=== PATIENT | male | born 1945 | race Caucasian/White ===

== ENCOUNTER → 2018-03-19 | Outpatient (CLI) | payer MEDICARE, OTHER ==
[2018-03-19 10:38] LABS: Basophils # (A) 0.1 k/uL (0-0.2); Basophils % (A) 1 %; Eosinophils # (A) 0.1 k/uL (0-0.7); Eosinophils % (A) 2 %; HCT 46.6 % (39.0-53.0); Lymphocytes # (A) 1.4 k/uL (1.0-4.8); Lymphocytes % (A) 19 %; MCH 28.8 pg (25.0-35.0); MCHC 32.1 g/dL (31.0-37.0); MCV 89.6 fL (80.0-100.0); Mean Platelet Volume 6.7; Monocytes # (A) 0.6 k/uL (0-1.0); Monocytes % (A) 9 %; Neutrophils # (A) 4.7 k/uL (1.3-7.7); Neutrophils % (A) 67 %; Platelet Count 251 k/uL (150-450); RBC 5.21 m/uL (4.30-5.90); RDW 15.2 % (11.5-15.5); WBC 7.1 k/uL (3.8-10.6)
== END | disposition home or self-care (01) ==
LOC: LABPAT 09:49
PROVIDERS: ATTEND Surgery
DX: Z01.812 Encounter for preprocedural laboratory examination (principal); K43.2 Incisional hernia without obstruction or gangrene; D64.9 Anemia, unspecified; F17.200 Nicotine dependence, unspecified, uncomplicated
CPT/HCPCS: 36415; 85025; 86850; 86900; 86901

== ENCOUNTER 2018-03-21 10:55 | Day surgery (SDC) | payer MEDICARE, OTHER ==
[2018-03-16 11:33] VITALS: BMI 23.5
[~2018-03-21 10:55] MED LIST: HEPARIN SODIUM,PORCINE 5,000 UNIT/ML 1 ML VIAL SQ ONE; ceFAZolin IN SWFI 2 GM/20 ML SYRINGE IVP ONE
[2018-03-21] MEDS ORDERED: LACTATED RINGERS 1,000 ML IV SCH (11:05)
[2018-03-21] MEDS ORDERED: MORPHINE SULFATE 2 MG/ML SYRINGE IV PRN (11:05)
[2018-03-21] MEDS ORDERED: DEXAMETHASONE SOD PHOSPHATE 10 MG/ML 1 ML VIAL IV ONE (11:05)
[2018-03-21] MEDS ORDERED: ONDANSETRON 4 MG/2 ML VIAL IVP ONE ×2 (11:05→14:06)
--- NOTE | 2018-03-21 11:41 | P.GSHP ---
History of Present Illness H&P Date: 03/21/18 Chief Complaint: Incisional hernia 's is a 72-year-old male referred from Dr. Leslie. Patient's complaints of epigastric pain. He was seen [facility] found have to reducible incisional hernias located in the epigastric and left upper quadrant area. Past Medical History Past Medical History: Cancer, COPD, CVA/TIA, GERD/Reflux, Hyperlipidemia, Hypertension, Myocardial Infarction ([place]), Prostate Disorder, Thyroid Disorder Additional Past Medical History / Comment(s): 2 incisional hernias, hx thyroid cancer, rt leg feels heavy after CVA- occ uses cane, Last Myocardial Infarction Date:: 06-25-2010 History of Any Multi-Drug Resistant Organisms: None Reported Past Surgical History: Bowel Resection, Coronary Bypass/CABG, Heart Catheterization With Stent Additional Past Surgical History / Comment(s): Mitral Valve Repair, CABG X4, STENT X1, thyroidectomy, right carotid endarterectomy, OBDULIA CATARACTS Past Anesthesia/Blood Transfusion Reactions: Postoperative Nausea & Vomiting ( PONV) Date of Last Stent Placement:: 04/25/2013 Smoking Status: Current every day smoker - Past Family History Sister(s) Family Medical History: Cancer Father Family Medical History: No Reported History Medications and Allergies Home Medications Medication Instructions Recorded Confirmed Type Aspirin 81 mg PO DAILY 06/01/15 03/21/18 History Ipratropium/Albuterol Sulfate 2 puff INHALATION QID PRN 06/01/15 03/21/18 History [Combivent Respimat Inhaler] Levothyroxine Sodium [Synthroid] 112 mcg PO DAILY 06/01/15 03/21/18 History Lisinopril [Zestril] 10 mg PO BID 06/01/15 03/21/18 History Tamsulosin HCl [Flomax] 0.4 mg PO HS 06/01/15 03/21/18 History Tiotropium 18 Mcg/Puff [Spiriva] 1 cap INHALATION HS PRN 06/01/15 03/21/18 History Warfarin [Coumadin] 2.5 mg PO HS 06/01/15 03/21/18 History Pravastatin Sodium [Pravachol] 40 mg PO HS 05/04/16 03/21/18 History Albuterol Sulfate [Proair Hfa] 1 - 2 puff INHALATION Q4H PRN #1 09/10/16 Rx inhaler Azithromycin [Zithromax Z-pack] 0 mg PO DIRECTED #1 pack 09/10/16 03/21/18 Rx predniSONE 50 mg PO DAILY #5 tab 09/10/16 03/21/18 Rx Allergies Allergy/AdvReac Type Severity Reaction Status Date / Time atorvastatin calcium Allergy Nausea Verified 03/21/18 11:12 [From Lipitor] hydromorphone HCl Allergy Unknown Verified 03/21/18 11:12 [From Dilaudid] levofloxacin [From Levaquin] Allergy Unknown Verified 03/21/18 11:12 Surgical - Exam Vital Signs Temp Pulse Resp BP Pulse Ox 98.2 F 83 16 146/90 97 03/21/18 11:26 03/21/18 11:26 03/21/18 11:26 03/21/18 11:26 03/21/18 11:26 - General well developed, no distress - Eyes PERRL - ENT normal pinna - Neck no masses - Respiratory normal expansion - Cardiovascular Rhythm: regular - Abdomen Abdomen: soft, non tender Hernia: incisional (3 cm epigastric incisional hernia. 2 cm left upper quadrant incisional hernia) Assessment and Plan Plan: Incisional hernias 2. We'll perform laparoscopic robotic-assisted repair.
[2018-03-21 11:54] LABS: Partial Thromboplastin Time 25.5 sec (22.0-30.0); Prothrombin Time 10.1 sec (9.0-12.0)
[2018-03-21] MEDS ORDERED: GLYCOPYRROLATE 0.2 MG/ML 2 ML VIAL ONE (12:13)
[2018-03-21] MEDS ORDERED: PROPOFOL 10 MG/ML 20 ML VIAL IV ONE (12:13)
[2018-03-21] MEDS ORDERED: NEOSTIGMINE 1 MG/ML 10 ML VIAL ONE (12:13)
[2018-03-21] MEDS ORDERED: LABETALOL 5 MG/ML VIAL MDV ONE (12:13)
[2018-03-21] MEDS ORDERED: LIDOCAINE 1% INJ 10MG/ML (20 ML MDV) ONE (12:13)
[2018-03-21] MEDS ORDERED: SUCCINYLCHOLINE CHLORIDE 100 MG/5 ML SYR IV ONE (12:13)
[2018-03-21] MEDS ORDERED: MIDAZOLAM 2 MG/2 ML VIAL ONE (12:13)
[2018-03-21] MEDS ORDERED: ROCURONIUM BROMIDE 10 MG/ML 10 ML VIAL IV ONE (12:13)
[2018-03-21] MEDS ORDERED: ePHEDrine SULFATE/0.9% NACL/PF 50 MG/5 ML SYRINGE IV ONE (12:13)
[2018-03-21] MEDS ORDERED: HYDROmorphone (PF) 1 MG/ML ONE (12:13)
[2018-03-21] MEDS ORDERED: fentaNYL (PF) 50 MCG/ML 2 ML AMP ONE (12:13)
[2018-03-21] MEDS ORDERED: BUPIVACAIN-EPI 0.25%-1:200,000 30 ML VIAL SQ ONE (12:23)
[2018-03-21 13:53] VITALS: TEMP 97.8
[2018-03-21] MEDS ORDERED: MORPHINE SULFATE 4 MG/ML SYRINGE IVP ONE (14:06)
[2018-03-21] MEDS ORDERED: MORPHINE SULFATE 4MG/4ML SYRG IVP ONE (14:17)
[2018-03-21] MEDS ORDERED: HYDROcodone/APAP 7.5-325MG 1 EACH TAB PO ONE (15:10)
--- NOTE | 2018-03-21 15:20 | P.OP ---
Date of Procedure: 03/21/18 Preoperative Diagnosis: Incisional hernia Postoperative Diagnosis: Incisional hernia Procedure(s) Performed: Laparoscopic robotic repair of incisional hernia Anesthesia: GUS Surgeon: Mitch Miller Pathology: none sent Condition: stable Disposition: PACU Description of Procedure: The patient was placed on the operating table in the supine position. He received general anesthesia. His abdomen was prepped and draped usual fashion. Using a 5 mm optical trocar under direct visualization the peritoneal cavity was entered in the right lower quadrant. The abdomen was then insufflated. The laparoscope was placed back into the perineal cavity. Next a 8 mm robotic trocar was placed in the left lower quadrant and a 8 mm robotic trochars placed in the right subcostal position. position. The patient's placed in the left side up position. And the patient was docked to the robot. The incisional hernia was visualized. Using hook cautery the peritoneum over the incisional hernia was excised. The fascial opening was repaired using 0V LOC suture. Next a piece of 11 cm round ventral light ST mesh was placed into the. Cavity and secured with 2 OV lock suture. The patient was undocked the robot. The needles were retrieved. The fascia of the 12 mm trocar site was closed with 0 Ethibond suture. Skin was closed interrupted 3-0 Monocryl suture. Dermabond dressings was applied. Patient tolerated procedure well and was sent to recovery room stable condition.
[2018-03-21 15:47] VITALS: BP 118/63; PULSE 71; RESP 18
== END 2018-03-21 16:13 | disposition home or self-care (01) ==
LOC: OR 10:55
PROVIDERS: ATTEND Surgery
DX: K43.2 Incisional hernia without obstruction or gangrene (principal); J44.9 Chronic obstructive pulmonary disease, unspecified; K21.9 Gastro-esophageal reflux disease without esophagitis; E78.5 Hyperlipidemia, unspecified; I10 Essential (primary) hypertension; N42.9 Disorder of prostate, unspecified; E89.0 Postprocedural hypothyroidism; I25.10 Atherosclerotic heart disease of native coronary artery without angina pectoris; I25.2 Old myocardial infarction; I69.341 Monoplegia of lower limb following cerebral infarction affecting right dominant side; F17.200 Nicotine dependence, unspecified, uncomplicated; Z95.2 Presence of prosthetic heart valve; Z95.1 Presence of aortocoronary bypass graft; Z95.5 Presence of coronary angioplasty implant and graft; Z85.850 Personal history of malignant neoplasm of thyroid; Z79.890 Hormone replacement therapy; Z79.82 Long term (current) use of aspirin; Z79.52 Long term (current) use of systemic steroids; Z79.899 Other long term (current) drug therapy; Z79.01 Long term (current) use of anticoagulants; Z88.1 Allergy status to other antibiotic agents; Z88.5 Allergy status to narcotic agent; Z88.8 Allergy status to other drugs, medicaments and biological substances
CPT/HCPCS: 85610; 85730; 49654; C1781; J2270 ×2; J1644; J1100; J2405; J0690; 86850; 86900; 86901

== ENCOUNTER 2018-07-21 13:59 | Emergency (ER) | payer MEDICARE, OTHER ==
[2018-07-21] MEDS ORDERED: SODIUM CHLORIDE 0.9% 1,000 ML IV STA ×2 (14:35)
[2018-07-21] MEDS ORDERED: ONDANSETRON 4 MG/2 ML VIAL IVP STA (14:35)
[2018-07-21] MEDS ORDERED: MECLIZINE 12.5 MG TAB PO STA ×2 (14:36→16:43)
--- NOTE | 2018-07-21 15:13 | ED ---
Dizziness HPI - General Chief Complaint: Dizziness Stated Complaint: Dizziness Time Seen by Provider: 07/21/18 14:22 Source: patient, RN notes reviewed, old records reviewed Mode of arrival: wheelchair Limitations: no limitations - History of Present Illness Initial Comments: This Patient is a 72-year-old male presents emergency Department with tingling of dizziness. Patient reports that when he woke up from his nap this morning he started to have dizziness with moving his head. He's had a history of vertigo in the past. His medications were they did not take them. He denied any chest pain shortness of breath or headaches associated with this. He does have a past medical history significant for cardiac disease, open-heart surgery 2 years ago, and previous history of strokes. Patient states that at this time he did have some episodes of vomiting prior to arrival. He threw up at home and once while getting into the car. He is here with his daughter today. Patient reports he does take Coumadin. - Related Data Home Medications Medication Instructions Recorded Confirmed Aspirin 81 mg PO DAILY 06/01/15 03/21/18 Ipratropium/Albuterol Sulfate 2 puff INHALATION QID PRN 06/01/15 03/21/18 [Combivent Respimat Inhaler] Levothyroxine Sodium [Synthroid] 112 mcg PO DAILY 06/01/15 03/21/18 Lisinopril [Zestril] 10 mg PO BID 06/01/15 03/21/18 Tamsulosin HCl [Flomax] 0.4 mg PO HS 06/01/15 03/21/18 Tiotropium 18 Mcg/Puff [Spiriva] 1 cap INHALATION HS PRN 06/01/15 03/21/18 Warfarin [Coumadin] 2.5 mg PO HS 06/01/15 03/21/18 Pravastatin Sodium [Pravachol] 40 mg PO HS 05/04/16 03/21/18 Previous Rx's Medication Instructions Recorded Albuterol Sulfate [Proair Hfa] 1 - 2 puff INHALATION Q4H PRN #1 09/10/16 inhaler Azithromycin [Zithromax Z-pack] 0 mg PO DIRECTED #1 pack 09/10/16 predniSONE 50 mg PO DAILY #5 tab 09/10/16 Docusate [Colace] 100 mg PO BID #20 capsule 03/21/18 HYDROcodone/APAP 7.5-325MG [[place] 1 tab PO Q4H PRN 3 Days #18 tab 03/21/18 7.5-325] Meclizine [Antivert] 25 mg PO TID #15 tab 07/21/18 Ondansetron Odt [Zofran Odt] 4 mg PO Q12HR PRN #10 tab 07/21/18 Allergies Allergy/AdvReac Type Severity Reaction Status Date / Time atorvastatin calcium Allergy Nausea Verified 07/21/18 14:02 [From Lipitor] hydromorphone HCl Allergy Unknown Verified 07/21/18 14:02 [From Dilaudid] levofloxacin [From Levaquin] Allergy Unknown Verified 07/21/18 14:02 Review of Systems ROS Statement: Those systems with pertinent positive or pertinent negative responses have been documented in the HPI. ROS Other: All systems not noted in ROS Statement are negative. Past Medical History Past Medical History: Cancer, COPD, CVA/TIA, GERD/Reflux, Hyperlipidemia, Hypertension, Myocardial Infarction ([place]), Prostate Disorder, Thyroid Disorder Additional Past Medical History / Comment(s): 2 incisional hernias, hx thyroid cancer, rt leg feels heavy after CVA- occ uses cane, Last Myocardial Infarction Date:: 06-25-2010 History of Any Multi-Drug Resistant Organisms: None Reported Past Surgical History: Bowel Resection, Coronary Bypass/CABG, Heart Catheterization With Stent, Hernia Repair Additional Past Surgical History / Comment(s): Mitral Valve Repair, CABG X4, STENT X1, thyroidectomy, right carotid endarterectomy, OBDULIA CATARACTS Past Anesthesia/Blood Transfusion Reactions: Postoperative Nausea & Vomiting ( PONV) Date of Last Stent Placement:: 04/25/2013 Past Psychological History: No Psychological Hx Reported Smoking Status: Current every day smoker Past Alcohol Use History: None Reported Past Drug Use History: None Reported - Past Family History Sister(s) Family Medical History: Cancer Father Family Medical History: No Reported History General Exam - General Exam Comments Initial Comments: 72-year-old male. Alert and oriented. Patient appears in no acute distress. Limitations: no limitations General appearance: alert, in no apparent distress Head exam: Present: atraumatic, normocephalic, normal inspection Eye exam: Present: normal appearance, PERRL, EOMI. Absent: scleral icterus, conjunctival injection, periorbital swelling ENT exam: Present: normal exam, normal oropharynx, mucous membranes moist Neck exam: Present: normal inspection. Absent: tenderness, meningismus, lymphadenopathy Respiratory exam: Present: normal lung sounds bilaterally. Absent: respiratory distress, wheezes, rales, rhonchi, stridor Cardiovascular Exam: Present: regular rate, normal rhythm, normal heart sounds. Absent: systolic murmur, diastolic murmur, rubs, gallop, clicks GI/Abdominal exam: Present: soft, normal bowel sounds. Absent: distended, tenderness, guarding, rebound, rigid Extremities exam: Present: normal inspection, full ROM, normal capillary refill. Absent: tenderness, pedal edema, joint swelling, calf tenderness Back exam: Present: normal inspection Neurological exam: Present: alert, oriented X3, CN II-XII intact, abnormal gait ( has chronic left-sided weakness posterior a stroke. Family reports this is chronic. No acute changes.) Expanded Patient oriented to: Present: person, place, time Speech: Present: fluid speech Cranial nerves: EOM's Intact: Normal, Nystagmus: Normal, Facial Sensation: Normal Cerebellar function: Finger to Nose: Normal Upper motor neuron: Pronator Drift: Normal Sensory exam: Upper Extremity Light Touch: Normal, Lower Extremity Light Touch: Normal Motor strength exam: RUE: 5, LUE: 5, RLE: 5, LLE: 4 (Patient did have decreased motor strength within the left lower extremity straight leg raise. Family reports this is chronic.) Eye Response: (4) open spontaneously Motor Response: (6) obeys commands Verbal Response: (5) oriented [place] Total: 15 Psychiatric exam: Present: normal affect, normal mood Skin exam: Present: warm, dry, intact, normal color. Absent: rash Course Vital Signs 07/21/18 07/21/18 07/21/18 14:02 14:14 14:30 Temperature 97.5 F L Pulse Rate 81 74 Respiratory 18 12 Rate Blood Pressure 144/94 156/98 156/98 O2 Sat by Pulse 98 96 97 Oximetry 07/21/18 07/21/18 07/21/18 15:00 15:30 16:00 Temperature Pulse Rate 76 79 Respiratory 18 14 Rate Blood Pressure 153/95 158/95 157/96 O2 Sat by Pulse 97 94 L Oximetry 07/21/18 07/21/18 16:30 17:40 Temperature 97.6 F Pulse Rate 81 78 Respiratory 18 16 Rate Blood Pressure 127/89 150/94 O2 Sat by Pulse 95 97 Oximetry - Reevaluation(s) Reevaluation #1: 07/21/18 17:28 At this time I did ambulate the Patient on the hallway and he feels much better. No signs of unsteady gait there than his baseline. Patient states he' s been much better and complains of no dizziness. Medical Decision Making - Medical Decision Making Patient is a 72-year-old male presents return with a chief complaint of dizziness episode. He reports it seems similar to vertigo, where the room was spinning and he did feel nauseated and vomited 3 times. At this time patient's labwork and EKG reviewed and show no acute changes. He does have history of stroke. We did complete a CT which shows evidence of old lacunar infarcts but no acute changes. Patient had no focal or lateralizing neurological deficits. He denied any chest pain or shortness of breath. Patient did feel better after receiving the Antivert. He was given a road test and had no difficulty with ambulation. Patient chest x-ray was also showing no acute changes. At this time Patient is to go home. He does not feel nauseated and reports that his vertigo has resolved after the Antivert from a second dose. Patient will be discharged with Antivert and Zofran. Discussed close follow up with primary care physician. - Lab Data Result diagrams: 07/21/18 15:01 07/21/18 15:01 Lab Results 07/21/18 07/21/18 07/21/18 Range/Units 15:01 15:01 15:01 WBC 10.8 H (3.8-10.6) k/uL RBC 5.41 (4.30-5.90) m/uL Hgb 15.3 (13.0-17.5) gm/dL Hct 47.6 (39.0-53.0) % MCV 88.0 (80.0-100.0) fL MCH 28.4 (25.0-35.0) pg MCHC 32.2 (31.0-37.0) g/dL RDW 14.5 (11.5-15.5) % Plt Count 323 (150-450) k/uL Neutrophils % 77 % Lymphocytes % 11 % Monocytes % 7 % Eosinophils % 2 % Basophils % 0 % Neutrophils # 8.4 H (1.3-7.7) k/uL Lymphocytes # 1.2 (1.0-4.8) k/uL Monocytes # 0.7 (0-1.0) k/uL Eosinophils # 0.3 (0-0.7) k/uL Basophils # 0.0 (0-0.2) k/uL PT (9.0-12.0) sec INR (<1.2) APTT (22.0-30.0) sec Sodium 140 (137-145) mmol/L Potassium 4.3 (3.5-5.1) mmol/L Chloride 107 (98-107) mmol/L Carbon Dioxide 28 (22-30) mmol/L Anion Gap 5 mmol/L BUN 22 H (9-20) mg/dL Creatinine 0.82 (0.66-1.25) mg/dL Est GFR (CKD-EPI)AfAm >90 (>60 ml/min/1.73 sqM) Est GFR (CKD-EPI)NonAf 90 (>60 ml/min/1.73 sqM) Glucose 95 (74-99) mg/dL Calcium 9.4 (8.4-10.2) mg/dL Total Bilirubin 0.5 (0.2-1.3) mg/dL AST 17 (17-59) U/L ALT 21 (21-72) U/L Alkaline Phosphatase 89 (38-126) U/L Total Creatine Kinase 70 (55-170) U/L CK-MB (CK-2) 1.0 (0.0-2.4) ng/mL CK-MB (CK-2) Rel Index 1.4 Troponin I <0.012 (0.000-0.034) ng/mL Total Protein 7.1 (6.3-8.2) g/dL Albumin 4.1 (3.5-5.0) g/dL 07/21/18 Range/Units 15:01 WBC (3.8-10.6) k/uL RBC (4.30-5.90) m/uL Hgb (13.0-17.5) gm/dL Hct (39.0-53.0) % MCV (80.0-100.0) fL MCH (25.0-35.0) pg MCHC (31.0-37.0) g/dL RDW (11.5-15.5) % Plt Count (150-450) k/uL Neutrophils % % Lymphocytes % % Monocytes % % Eosinophils % % Basophils % % Neutrophils # (1.3-7.7) k/uL Lymphocytes # (1.0-4.8) k/uL Monocytes # (0-1.0) k/uL Eosinophils # (0-0.7) k/uL Basophils # (0-0.2) k/uL PT 16.7 H (9.0-12.0) sec INR 1.8 H (<1.2) APTT 30.8 H (22.0-30.0) sec Sodium (137-145) mmol/L Potassium (3.5-5.1) mmol/L Chloride (98-107) mmol/L Carbon Dioxide (22-30) mmol/L Anion Gap mmol/L BUN (9-20) mg/dL Creatinine (0.66-1.25) mg/dL Est GFR (CKD-EPI)AfAm (>60 ml/min/1.73 sqM) Est GFR (CKD-EPI)NonAf (>60 ml/min/1.73 sqM) Glucose (74-99) mg/dL Calcium (8.4-10.2) mg/dL Total Bilirubin (0.2-1.3) mg/dL AST (17-59) U/L ALT (21-72) U/L Alkaline Phosphatase (38-126) U/L Total Creatine Kinase (55-170) U/L CK-MB (CK-2) (0.0-2.4) ng/mL CK-MB (CK-2) Rel Index Troponin I (0.000-0.034) ng/mL Total Protein (6.3-8.2) g/dL Albumin (3.5-5.0) g/dL 07/21/18 18:54 EKG performed at 1422 shows a sinus of left atrial ALLERGIC report on EKG noted. Ventricular rate 73 bpm. Was 188. QRS duration 112. QTQTC's for 424-467. - Radiology Data Radiology results: report reviewed Chronic small vessel ischemia. Multiple lacunar infarcts. No acute intracranial abnormality. No significant changes noted. Chest x-ray shows no active cardio primary disease. Normal heart. No change. Disposition Clinical Impression: Vertigo Disposition: HOME SELF-CARE Condition: Good Instructions: Vertigo (ED) Additional Instructions: Patient advised follow-up with primary care provider. Return to the emergency department if any alarming signs or symptoms occur. Prescriptions: Meclizine [Antivert] 25 mg PO TID #15 tab Ondansetron Odt [Zofran Odt] 4 mg PO Q12HR PRN #10 tab PRN Reason: Nausea Is patient prescribed a controlled substance at d/c from ED?: No Referrals: Sonny Leslie MD [Primary Care Provider] - 1-2 days Time of Disposition: 17:27
[2018-07-21 15:17] LABS: Basophils % (A) 0 %; Eosinophils # (A) 0.3 k/uL (0-0.7); Eosinophils % (A) 2 %; HCT 47.6 % (39.0-53.0); HGB 15.3 gm/dL (13.0-17.5); Lymphocytes # (A) 1.2 k/uL (1.0-4.8); Lymphocytes % (A) 11 %; MCH 28.4 pg (25.0-35.0); MCHC 32.2 g/dL (31.0-37.0); Mean Platelet Volume 6.6; Monocytes # (A) 0.7 k/uL (0-1.0); Monocytes % (A) 7 %; Neutrophils # (A) 8.4 k/uL (1.3-7.7); Neutrophils % (A) 77 %; Platelet Count 323 k/uL (150-450); RBC 5.41 m/uL (4.30-5.90); RDW 14.5 % (11.5-15.5); WBC 10.8 k/uL (3.8-10.6)
[2018-07-21 15:26] LABS: ALT 21 U/L (21-72); AST 17 U/L (17-59); Albumin 4.1 g/dL (3.5-5.0); Alkaline Phosphatase 89 U/L (38-126); Anion Gap 5 mmol/L; Blood Urea Nitrogen 22 mg/dL (9-20); Calcium 9.4 mg/dL (8.4-10.2); Carbon Dioxide 28 mmol/L (22-30); Chloride 107 mmol/L (98-107); Glucose 95 mg/dL (74-99); INR 1.8 (<1.2); Partial Thromboplastin Time 30.8 sec (22.0-30.0); Potassium 4.3 mmol/L (3.5-5.1); Prothrombin Time 16.7 sec (9.0-12.0); Sodium 140 mmol/L (137-145); Total Bilirubin 0.5 mg/dL (0.2-1.3); Total Protein 7.1 g/dL (6.3-8.2)
[2018-07-21 15:36] LABS: Creatine Kinase 70 U/L (55-170)
--- NOTE | 2018-07-21 15:38 | XR ---
EXAMINATION TYPE: XR chest 2V DATE OF EXAM: 07/21/2018 COMPARISON: 09/09/2016 HISTORY: Dizziness TECHNIQUE: Frontal and lateral views of the chest are obtained. FINDINGS: Heart is normal. Lungs are clear of consolidation. Thoracic aorta is atheromatous. There a re sternal wires. There are chest leads. Bony thorax is intact. IMPRESSION: No active cardiopulmonary disease. Normal heart. No change.
[2018-07-21 15:49] LABS: Troponin I <0.012 ng/mL (0.000-0.034)
--- NOTE | 2018-07-21 15:55 | CT ---
EXAMINATION TYPE: CT brain wo con DATE OF EXAM: 07/21/2018 COMPARISON: 02/05/2016 HISTORY: Dizziness. CT DLP: 1076.4 mGycm Automated exposure control for dose reduction was used. FINDINGS: There is patchy hypodensity in the periventricular white matter. There is no mass effect nor midline shift. There is no sign of intracranial hemorrhage. There is cerebral cortical atrophy. Calvarium is intact. There is a 7 mm lacunar infarct right internal capsule. IMPRESSION: CHRONIC SMALL VESSEL ISCHEMIA. MULTIPLE LACUNAR INFARCTS. NO ACUTE INTRACRANIAL ABNORMALITY. NO SHANKS E.
[2018-07-21] MEDS ORDERED: ONDANSETRON 4 MG ODT STARTER PACK 2 TAB BTL PO STA (17:27)
[2018-07-21 17:41] VITALS: BP 150/94; PULSE 78; RESP 16; TEMP 97.6
== END 2018-07-21 17:40 | disposition home or self-care (01) ==
LOC: EC 13:59
DX: R42 Dizziness and giddiness (principal); I67.82 Cerebral ischemia; I69.354 Hemiplegia and hemiparesis following cerebral infarction affecting left non-dominant side; R11.2 Nausea with vomiting, unspecified; E78.5 Hyperlipidemia, unspecified; I10 Essential (primary) hypertension; J44.9 Chronic obstructive pulmonary disease, unspecified; N42.9 Disorder of prostate, unspecified; I25.2 Old myocardial infarction; E89.0 Postprocedural hypothyroidism; F17.200 Nicotine dependence, unspecified, uncomplicated; Z88.1 Allergy status to other antibiotic agents; Z88.5 Allergy status to narcotic agent; Z88.8 Allergy status to other drugs, medicaments and biological substances; Z79.01 Long term (current) use of anticoagulants; Z79.82 Long term (current) use of aspirin; Z79.899 Other long term (current) drug therapy; Z85.850 Personal history of malignant neoplasm of thyroid; Z95.1 Presence of aortocoronary bypass graft; Z98.890 Other specified postprocedural states
CPT/HCPCS: 36415; 93005; 80053; 82550; 82553; 84484; 85025; 85610; 85730; 71046; 70450; 99285; 96374; 96361 ×3; J2405

== ENCOUNTER 2019-07-28 08:14 | Emergency (ER) | payer MEDICARE, OTHER ==
[2019-07-28] MEDS ORDERED: TOBRAMYCIN 0.3% OPHTH DROPS 5 ML BTL RIGHT EYE STA (08:20)
[2019-07-28] MEDS ORDERED: PROPARACAINE 0.5% OPHTH DROPS 15 ML BTL RIGHT EYE STA (08:20)
[2019-07-28] MEDS ORDERED: DIPH,PERTUS(ACELL)TETVAC-LF 0.5 ML VIAL IM ONE (08:38)
--- NOTE | 2019-07-28 08:40 | ED ---
Eye Problem HPI - General Chief complaint: Eye Problems Stated complaint: Eye injury Time Seen by Provider: 07/28/19 08:19 Source: patient, RN notes reviewed Mode of arrival: ambulatory Limitations: no limitations - History of Present Illness Initial comments: 73-year-old male presented from chief complaint right eye injury. Patient states he woke up around 9 scratches on it. Patient states he is unsure when his last tetanus was. Patient states that he has light sensitivity and pain to his right eye but no blurred vision he states it is tearing some. He does wear glasses does see Dr. Kaminski. - Related Data Home Medications Medication Instructions Recorded Confirmed Aspirin 81 mg PO DAILY 06/01/15 03/21/18 Ipratropium/Albuterol Sulfate 2 puff INHALATION QID PRN 06/01/15 03/21/18 [Combivent Respimat Inhaler] Levothyroxine Sodium [Synthroid] 112 mcg PO DAILY 06/01/15 03/21/18 Lisinopril [Zestril] 10 mg PO BID 06/01/15 03/21/18 Tamsulosin HCl [Flomax] 0.4 mg PO HS 06/01/15 03/21/18 Tiotropium 18 Mcg/Puff [Spiriva] 1 cap INHALATION HS PRN 06/01/15 03/21/18 Warfarin [Coumadin] 2.5 mg PO HS 06/01/15 03/21/18 Pravastatin Sodium [Pravachol] 40 mg PO HS 05/04/16 03/21/18 Previous Rx's Medication Instructions Recorded Albuterol Sulfate [Proair Hfa] 1 - 2 puff INHALATION Q4H PRN #1 09/10/16 inhaler Azithromycin [Zithromax Z-pack] 0 mg PO DIRECTED #1 pack 09/10/16 predniSONE 50 mg PO DAILY #5 tab 09/10/16 Docusate [Colace] 100 mg PO BID #20 capsule 03/21/18 HYDROcodone/APAP 7.5-325MG [[place] 1 tab PO Q4H PRN 3 Days #18 tab 03/21/18 7.5-325] Meclizine [Antivert] 25 mg PO TID #15 tab 07/21/18 Ondansetron Odt [Zofran Odt] 4 mg PO Q12HR PRN #10 tab 07/21/18 Allergies Allergy/AdvReac Type Severity Reaction Status Date / Time atorvastatin calcium Allergy Nausea Verified 07/28/19 08:18 [From Lipitor] hydromorphone HCl Allergy Unknown Verified 07/28/19 08:18 [From Dilaudid] levofloxacin [From Levaquin] Allergy Unknown Verified 07/28/19 08:18 Review of Systems ROS Statement: Those systems with pertinent positive or pertinent negative responses have been documented in the HPI. ROS Other: All systems not noted in ROS Statement are negative. Past Medical History Past Medical History: Cancer, COPD, CVA/TIA, GERD/Reflux, Hyperlipidemia, Hypertension, Myocardial Infarction ([place]), Prostate Disorder, Thyroid Disorder Additional Past Medical History / Comment(s): 2 incisional hernias, hx thyroid cancer, rt leg feels heavy after CVA- occ uses cane, Last Myocardial Infarction Date:: 06-25-2010 History of Any Multi-Drug Resistant Organisms: None Reported Past Surgical History: Bowel Resection, Coronary Bypass/CABG, Heart Catheterization With Stent, Hernia Repair Additional Past Surgical History / Comment(s): Mitral Valve Repair, CABG X4, STENT X1, thyroidectomy, right carotid endarterectomy, OBDULIA CATARACTS Past Anesthesia/Blood Transfusion Reactions: Postoperative Nausea & Vomiting (PONV) Date of Last Stent Placement:: 04/25/2013 Past Psychological History: No Psychological Hx Reported Smoking Status: Current every day smoker Past Alcohol Use History: None Reported Past Drug Use History: None Reported - Past Family History Sister(s) Family Medical History: Cancer Father Family Medical History: No Reported History General Exam Limitations: no limitations General appearance: alert, in no apparent distress Head exam: Present: atraumatic, normocephalic, normal inspection Eye exam: Present: PERRL, EOMI, conjunctival injection (Mild right), other (2 drops of proparacaine and recent right eye all pain was relieved. Patient had fluorescein dye and Wood's lamp which shows a large uptake, 12:00 to 4 o'clock position there is no disruption of the globe.). Absent: normal appearance, scleral icterus, periorbital swelling Course Vital Signs 07/28/19 08:14 Temperature 98.4 F Pulse Rate 77 Respiratory 18 Rate Blood Pressure 153/89 O2 Sat by Pulse 96 Oximetry Medical Decision Making - Medical Decision Making 73-year-old male presented for right eye pain. Patient has a corneal abrasion which is significantly large this was shown to daughter in the room. Patient instructed to use Tobrex eyedrops and recently seen by his boat fueler tomorrow. He is return for any change in symptoms. Patient's tetanus is updated Disposition Clinical Impression: Corneal abrasion, right Disposition: HOME SELF-CARE Condition: Stable Instructions (If sedation given, give patient instructions): Corneal Abrasion (ED) Additional Instructions: Use Tobrex eyedrops 1 drop every 4 hours for 5 days. please follow-up with your boat fueler tomorrow. Please return to the Emergency Department if symptoms worsen or any other concerns. Is patient prescribed a controlled substance at d/c from ED?: No Referrals: Sonny Leslie MD [Primary Care Provider] - 1-2 days Chin Kaminski DO [Doctor of Osteopathic Medicine] - 1-2 days Time of Disposition: 08:40
[2019-07-28 09:13] VITALS: BP 145/95; PULSE 80; RESP 20; TEMP 96.9
== END 2019-07-28 09:21 | disposition home or self-care (01) ==
LOC: EC 08:14
DX: S05.01XA Injury of conjunctiva and corneal abrasion without foreign body, right eye, initial encounter (principal); J44.9 Chronic obstructive pulmonary disease, unspecified; K21.9 Gastro-esophageal reflux disease without esophagitis; E78.5 Hyperlipidemia, unspecified; I10 Essential (primary) hypertension; I25.2 Old myocardial infarction; N42.9 Disorder of prostate, unspecified; E07.9 Disorder of thyroid, unspecified; F17.200 Nicotine dependence, unspecified, uncomplicated; Z23 Encounter for immunization; Z79.82 Long term (current) use of aspirin; Z79.01 Long term (current) use of anticoagulants; Z79.890 Hormone replacement therapy; Z79.51 Long term (current) use of inhaled steroids; Z79.899 Other long term (current) drug therapy; Z88.1 Allergy status to other antibiotic agents; Z88.5 Allergy status to narcotic agent; Z88.8 Allergy status to other drugs, medicaments and biological substances; Z95.1 Presence of aortocoronary bypass graft; Z85.850 Personal history of malignant neoplasm of thyroid; Z86.73 Personal history of transient ischemic attack (TIA), and cerebral infarction without residual deficits; Z95.5 Presence of coronary angioplasty implant and graft; Z90.89 Acquired absence of other organs; Z98.41 Cataract extraction status, right eye; Z98.42 Cataract extraction status, left eye; X58.XXXA Exposure to other specified factors, initial encounter; Y93.89 Activity, other specified
CPT/HCPCS: 90471; 90715; 99283

== ENCOUNTER 2020-04-16 06:18 | Day surgery (SDC) | payer MEDICARE, OTHER ==
[2020-04-15 09:41] VITALS: BMI 24.2
[~2020-04-16 06:18] MED LIST changes: +ALPRAZolam 0.25 MG TAB PO PRN; -HEPARIN SODIUM,PORCINE 5,000 UNIT/ML 1 ML VIAL SQ ONE; +SODIUM CHLORIDE 0.9% 1,000 ML in EMPTY BAG 1 BAG IV ONE; -ceFAZolin IN SWFI 2 GM/20 ML SYRINGE IVP ONE
[2020-04-16 06:57] VITALS: RESP 16; TEMP 97.8
[2020-04-16 06:59] LABS: Basophils # (A) 0.1 k/uL (0-0.2); Basophils % (A) 1 %; Eosinophils # (A) 0.4 k/uL (0-0.7); Eosinophils % (A) 4 %; Lymphocytes # (A) 2.1 k/uL (1.0-4.8); Lymphocytes % (A) 21 %; MCH 28.4 pg (25.0-35.0); MCHC 31.8 g/dL (31.0-37.0); MCV 89.1 fL (80.0-100.0); Mean Platelet Volume 7.4; Monocytes # (A) 1.2 k/uL (0-1.0); Monocytes % (A) 12 %; Neutrophils # (A) 5.9 k/uL (1.3-7.7); Neutrophils % (A) 59 %; Platelet Count 329 k/uL (150-450); RBC 5.28 m/uL (4.30-5.90); RDW 14.4 % (11.5-15.5); WBC 9.9 k/uL (3.8-10.6)
[2020-04-16] MEDS ORDERED: ASPIRIN 325 MG TAB PO ONE (07:00)
[2020-04-16 07:07] LABS: Potassium 4.2 mmol/L (3.5-5.1)
[2020-04-16 07:16] LABS: Prothrombin Time 10.5 sec (9.0-12.0)
[2020-04-16] MEDS ORDERED: MIDAZOLAM 2 MG/2 ML VIAL IV ONE (07:56)
[2020-04-16] MEDS ORDERED: LIDOCAINE 1% INJ 10MG/ML (20 ML MDV) SQ ONE (07:58)
[2020-04-16] MEDS ORDERED: IOPAMIDOL-250 100ML BTL INTRAARTER ONE (08:10)
[2020-04-16] MEDS ORDERED: SODIUM CHLORIDE 0.9% 1,000 ML IV SCH (08:30)
--- NOTE | 2020-04-16 08:35 | IR ---
EXAMINATION TYPE: IR angio abdominal w runoff DATE OF EXAM: 04/16/2020 COMPARISON: NONE HISTORY: Fluoroscopy time. Fluoroscopy was provided to the referring clinician.
--- NOTE | 2020-04-16 09:29 | CC ---
CARDIAC CATHETERIZATION REPORT DATE OF SERVICE: 04/16/2020 PERFORMING PHYSICIAN: Odell Love MD. PROCEDURE PERFORMED: 1. An abdominal aortogram. 2. Bilateral lower extremities runoff. INDICATION: This is a 74-year-old gentleman who sees Dr. Ivan in the office as an outpatient with multiple risk factors including significant history of smoking, was experiencing bilateral lower extremities intermittent claudication, worse on the right side than the left side. On vascular examination, he does have diminished pedal pulses with chronic skin changes, more prominent on the right than the left. He underwent an arterial duplex study which showed elevated peak systolic velocity over the right SFA. Because of that, he was referred for further evaluation. APPROACH: Right common femoral artery. COMPLICATION: None. LEVEL OF SEDATION: Moderate with sedation length of 15 minutes. PROCEDURE DESCRIPTION: After obtaining an informed consent, the patient was brought to the cardiac label stitcher. The right common femoral artery was cannulated using micropuncture technique, the micropuncture wire passed easily, then I placed a 5-Australian sheath 11 cm at the right groin than subsequently I did an abdominal aortogram and bilateral lower extremities runoff using 5-Australian pigtail catheter which was initially placed at the level of the renal arteries, then it was pulled into above the bifurcation of the aorta. That was performed using digital subtraction as well as with a power injection. SELECTIVE PERIPHERAL ANGIOGRAM: 1. The aorta is aneurysmal and the aneurysm is involving both common iliac arteries. 2. Common iliac arteries: The right and left common iliac arteries are aneurysmal. Beside that, the left common iliac artery appeared to have a tight lesion in the range of 70% to 80%. 3. Internal iliac arteries: Both internal iliac arteries are patent. 4. External iliac arteries: Both external iliac arteries appeared to have mild disease only. 5. Common femoral arteries: Both common femoral arteries are patent. 6. Profunda:: Both profunda are patent. 7. SFA; The right SFA appeared to have a tight lesion in the midportion. The lesion appeared to be in the range of 80% to 90%. The left SFA appeared to have mild disease only. 8. Popliteal: Both popliteal appear to be appeared to be aneurysmal. 9. Below the knee: The patient does have 2-vessel runoff below the knee on the right side with posterior tibial and peroneal and 2 on the left side with anterior tibial and peroneal impulse. POSTPROCEDURE MANAGEMENT: 1. Address the infrarenal abdominal aortic aneurysm. 2. Then COIL TIER of the SFA to follow. LIV / JIMMYN: [id number] /
[2020-04-16 11:42] VITALS: BP 145/76; PULSE 63
== END 2020-04-16 13:34 | disposition home or self-care (01) ==
LOC: CATHCVL 06:18
PROVIDERS: ATTEND Internal Medicine Interventional Cardiology
DX: I70.213 Atherosclerosis of native arteries of extremities with intermittent claudication, bilateral legs (principal); I72.3 Aneurysm of iliac artery; I71.4 Abdominal aortic aneurysm, without rupture; I10 Essential (primary) hypertension; I25.10 Atherosclerotic heart disease of native coronary artery without angina pectoris; E78.5 Hyperlipidemia, unspecified; F17.210 Nicotine dependence, cigarettes, uncomplicated; Z79.01 Long term (current) use of anticoagulants; Z79.82 Long term (current) use of aspirin; Z79.890 Hormone replacement therapy; Z79.899 Other long term (current) drug therapy
CPT/HCPCS: 36200; 75625; 75716; 80048; 85025; 85610; C1769 ×5; C1894; J2250; J2001; Q9966

== ENCOUNTER 2020-05-20 09:40 | Day surgery (SDC) | payer MEDICARE, OTHER ==
[2020-05-14 10:06] VITALS: BMI 23.5
[~2020-05-20 09:40] MED LIST changes: +ASPIRIN 325 MG TAB PO STA
[2020-05-20 10:43] LABS: Prothrombin Time 10.3 sec (9.0-12.0)
[2020-05-20] MEDS ORDERED: SODIUM CHLORIDE 0.9% 500 ML 500 ML with niCARdipine 6.25 MG, NITROGLYCERIN-D5W PMX 0.05... IV ONE ×4 (12:15)
[2020-05-20] MEDS ORDERED: MIDAZOLAM 2 MG/2 ML VIAL IV ONE (12:19)
[2020-05-20] MEDS ORDERED: LIDOCAINE 1% INJ 10MG/ML (20 ML MDV) SQ ONE (12:20)
[2020-05-20] MEDS ORDERED: NITROGLYCERIN 1000MCG/10ML SYRINGE INTRAARTER ONE (13:00)
[2020-05-20] MEDS ORDERED: niCARdipine 25 MG/10 ML VIAL INTRAARTER ONE (13:00)
[2020-05-20] MEDS ORDERED: IOPAMIDOL-250 100ML BTL INTRAARTER ONE (13:04)
[2020-05-20] MEDS ORDERED: CLOPIDOGREL 75 MG TAB PO ONE (13:08)
[2020-05-20] MEDS ORDERED: IPRATROPIUM-ALBUTEROL 3 ML NEB INHALATION PRN (13:24)
[2020-05-20] MEDS ORDERED: SODIUM CHLORIDE 0.9% 1,000 ML in EMPTY BAG 1 BAG IV SCH (13:30)
--- NOTE | 2020-05-20 13:31 | IR ---
EXAMINATION TYPE: IR stent intravascular non coronary DATE OF EXAM: 05/20/2020 COMPARISON: NONE HISTORY: Right leg pain TECHNIQUE: Fluoroscopy. FINDINGS: Fluoroscopic guidance was provided during procedure performed by Dr. Love. A total of 5.4 minutes of fluoroscopic time was utilized during the procedure and 236 spot images was acquired. Ple ase see operative report for additional details. IMPRESSION: As Above.
[2020-05-20] MEDS: IPRATROPIUM 0.5 MG/2.5 ML NEBU INHALATION SCH (20:41)
[2020-05-20] MEDS: lisinopriL 10 MG TAB PO SCH (20:41)
[2020-05-20] MEDS ORDERED: PRAVASTATIN SODIUM 80 MG TAB PO SCH (21:00)
[2020-05-20] MEDS ORDERED: TAMSULOSIN 0.4 MG CAP.ER.24H PO SCH (21:00)
--- NOTE | 2020-05-20 22:52 | LTR ---
To: Dr. Sonny Leslie Re: Ap Win (49) Dear Dr. Leslie, MrChe Win underwent successful balloon angioplasty of the right femoral artery with an excellent angiographic result and without any complication. Thank you for allowing us to participate in his care and please do not hesitate to call if you have any question or concern. Sincerely, Odell Love M.D. LIV / STEPHANIE: [id number] /
--- NOTE | 2020-05-21 00:28 | AN ---
ANGIOGRAPHY REPORT PERCUTANEOUS PERIPHERAL INTERVENTION DATE OF SERVICE: May 20, 2020 PERFORMING PHYSICIAN: Odell Love MD. PROCEDURE PERFORMED: 1. Atherectomy of the right SFA using the HawkOne device. 2. Intravascular ultrasound, IVUS, of the right SFA. 3. Successful balloon angioplasty of the right SFA using 5 mm x 40 mm InPact drug- coated balloon with an excellent angiographic result. 4. Right lower extremity angiogram. 5. Selective left common femoral artery angiogram. INDICATION: This is a 74-year-old gentleman who was experiencing bilateral lower extremities discomfort, worse on the right side seems to be concerning for intermittent claudication. He underwent an aortogram with runoff and that revealed intermediate to severe disease involving the left iliac artery with critical disease involving the right SFA. He was brought today to undergo an intervention on the right SFA. APPROACH: Left common femoral artery. COMPLICATION: None. LEVEL OF SEDATION: Moderate with sedation length of 40 minutes. PROCEDURE DESCRIPTION: After obtaining an informed consent, the patient was brought to the cardiac cleaner laboratory equipment. The left common femoral artery was cannulated using micropuncture technique, and a micropuncture wire passed easily then I placed a 6-English 70 cm sheath at the left common femoral artery. Subsequently, an 0.035 stiff Glidewire was advanced up and over using 5-English rim all the way to the right SFA. Subsequently, the sheath was advanced over the wire to the mid right SFA. At that point, anticoagulation was initiated using heparin. Right lower extremity angiogram was performed and revealed severe [id number]-[id number]-[id number] disease with critical disease involving the mid right SFA. I did cross the lesion in the right SFA using a 0.[address] wire. Subsequently I did intravascular ultrasound which gave me a diameter of 5.5 mm. Subsequently, atherectomy was performed using the HawkOne device with extraction of significant plaque. Then I did balloon angioplasty initially using 5 mm regular balloon and subsequently 5 mm drug-coated balloon. The following angiogram showed great angiographic results and the procedure was completed without any complication. A completion picture was performed and came in to be unremarkable. After that I did exchange my long sheath into short sheath using an 0.035 stiff Glidewire before I did selective left common femoral artery angiogram. The procedure was completed without any complication. POSTPROCEDURE MANAGEMENT: 1. Dual anti-platelet therapy. 2. Risk factor modifications. 3. Follow up with the patient. MMODL / IJN: [id number] /
[2020-05-21 05:43] LABS: African American GFR (CKD) >90 (>60 ml/min/1.73 sqM); Magnesium 1.8 mg/dL (1.6-2.3); Non-African American GFR(CKD) 90 (>60 ml/min/1.73 sqM); Potassium 3.8 mmol/L (3.5-5.1)
[2020-05-21] MEDS ORDERED: LEVOTHYROXINE 100 MCG TAB PO SCH (06:30)
--- NOTE | 2020-05-21 07:08 | DS ---
DISCHARGE SUMMARY ADMISSION DATE: May 20, 2020 DISCHARGE DATE: May 21, 2020 BRIEF HISTORY: This is a pleasant 74-year-old gentleman who was experiencing right lower extremity and left lower extremity intermittent claudication and underwent an angiogram which revealed critical disease involving the right SFA. He underwent yesterday successful atherectomy and angioplasty of the right SFA with good angiographic results. The patient is going to be discharged home on dual anti-platelet therapy. I am going to hold the Coumadin for the next couple of days until the groin heals better. I will follow up with the patient next week in the office. LIV / STEPHANIE: [id number] /
[2020-05-21] MEDS ORDERED: CLOPIDOGREL 75 MG TAB PO SCH (09:00)
[2020-05-21] MEDS ORDERED: amLODIPine 5 MG TAB PO SCH (09:00)
[2020-05-21] MEDS ORDERED: ASPIRIN 81 MG PO SCH (09:00)
[2020-05-21] MEDS: IPRATROPIUM 0.5 MG/2.5 ML NEBU INHALATION SCH (09:11)
[2020-05-21 09:31] VITALS: BP 145/85; PULSE 72; RESP 18; TEMP 97.8
[2020-05-21] MEDS: lisinopriL 10 MG TAB PO SCH (09:55)
[2020-05-21 11:48] LABS: Basophils # (A) 0.1 k/uL (0-0.2); Basophils % (A) 1 %; Eosinophils # (A) 0.4 k/uL (0-0.7); Eosinophils % (A) 4 %; HCT 44.2 % (39.0-53.0); HGB 13.9 gm/dL (13.0-17.5); Lymphocytes # (A) 1.3 k/uL (1.0-4.8); Lymphocytes % (A) 13 %; MCH 27.4 pg (25.0-35.0); MCHC 31.4 g/dL (31.0-37.0); MCV 87.3 fL (80.0-100.0); Mean Platelet Volume 8.6; Monocytes # (A) 1.2 k/uL (0-1.0); Monocytes % (A) 12 %; Neutrophils # (A) 6.7 k/uL (1.3-7.7); Neutrophils % (A) 68 %; Platelet Count 302 k/uL (150-450); RBC 5.06 m/uL (4.30-5.90); RDW 14.3 % (11.5-15.5); WBC 9.9 k/uL (3.8-10.6)
[2020-05-21 12:07] LABS: Anion Gap 7 mmol/L; Blood Urea Nitrogen 18 mg/dL (9-20); Calcium 8.6 mg/dL (8.4-10.2); Carbon Dioxide 21 mmol/L (22-30); Chloride 110 mmol/L (98-107); Glucose 90 mg/dL (74-99); Sodium 138 mmol/L (137-145)
== END 2020-05-21 10:00 | disposition home or self-care (01) ==
LOC: CATHCVL 09:40 → 3NCARDOBS 17:14 → CATHCVL 05-21 10:00
PROVIDERS: ATTEND Internal Medicine Interventional Cardiology
DX: I70.213 Atherosclerosis of native arteries of extremities with intermittent claudication, bilateral legs (principal); I10 Essential (primary) hypertension; I25.10 Atherosclerotic heart disease of native coronary artery without angina pectoris; I48.0 Paroxysmal atrial fibrillation; I71.4 Abdominal aortic aneurysm, without rupture; E78.5 Hyperlipidemia, unspecified; F17.210 Nicotine dependence, cigarettes, uncomplicated; Z95.1 Presence of aortocoronary bypass graft; Z79.01 Long term (current) use of anticoagulants; Z79.890 Hormone replacement therapy; Z79.899 Other long term (current) drug therapy; Z79.82 Long term (current) use of aspirin
CPT/HCPCS: 94640; 37225; 85347; 37252; 80048; 83735; 85025; 85610; C1894 ×3; C1769 ×5; C1714; C1753; C2623; C1725; J2250; J2001; J1644; Q9966

== ENCOUNTER → 2020-06-03 | Outpatient (CLI) | payer MEDICARE, OTHER ==
--- NOTE | 2020-06-03 08:18 | US ---
EXAMINATION TYPE: US venous doppler duplex LE RT DATE OF EXAM: 06/03/2020 7:21 AM COMPARISON: NONE CLINICAL HISTORY: 74-year-old male R22.41 Localized swelling, mass and lump, right lower extremity. S welling of right foot and ankle SIDE PERFORMED: Right TECHNIQUE: The lower extremity deep venous system is examined utilizing real time linear array sonog uknal with graded compression, doppler sonography and color-flow sonography. FINDINGS: VESSELS IMAGED: External Iliac Vein (EIV) Common Femoral Vein Deep Femoral Vein Greater Saphenous Vein * Femoral Vein Popliteal Vein Small Saphenous Vein * Proximal Calf Veins (* superficial vessels) Right Leg: Negative for DVT IMPRESSION: No evidence for DVT within the right lower extremity imaged from the groin to the upper calf.
== END | disposition home or self-care (01) ==
LOC: RADUSWWP 06:53
PROVIDERS: ATTEND Family Medicine
DX: R22.41 Localized swelling, mass and lump, right lower limb (principal); R22.42 Localized swelling, mass and lump, left lower limb

== ENCOUNTER 2022-02-13 14:23 | Emergency (ER) | payer MEDICARE, OTHER ==
[2022-02-13 14:31] VITALS: TEMP 97.9
[2022-02-13] MEDS ORDERED: hydrALAZINE HCL 20 MG/ML 1 ML VIAL IVP STA ×3 (14:57→18:38)
[2022-02-13 15:24] LABS: INR 2.1 (<1.2); Partial Thromboplastin Time 37.9 sec (22.0-30.0); Prothrombin Time 20.9 sec (9.0-12.0)
[2022-02-13 15:34] LABS: ALT 15 U/L (4-49); AST 25 U/L (17-59); African American GFR (CKD) >90 (>60 ml/min/1.73 sqM); Albumin 4.1 g/dL (3.5-5.0); Alkaline Phosphatase 119 U/L (38-126); Anion Gap 7 mmol/L; Blood Urea Nitrogen 20 mg/dL (9-20); Calcium 8.9 mg/dL (8.4-10.2); Carbon Dioxide 24 mmol/L (22-30); Chloride 105 mmol/L (98-107); Glucose 105 mg/dL (74-99); Magnesium 1.9 mg/dL (1.6-2.3); Non-African American GFR(CKD) 80 (>60 ml/min/1.73 sqM); Potassium 4.1 mmol/L (3.5-5.1); Sodium 136 mmol/L (137-145); Total Bilirubin 0.5 mg/dL (0.2-1.3)
[2022-02-13 15:35] LABS: Basophils # (A) 0.1 k/uL (0-0.2); Basophils % (A) 1 %; Eosinophils # (A) 0.2 k/uL (0-0.7); Eosinophils % (A) 3 %; HCT 47.5 % (39.0-53.0); HGB 15.1 gm/dL (13.0-17.5); Lymphocytes # (A) 1.5 k/uL (1.0-4.8); Lymphocytes % (A) 23 %; MCH 28.4 pg (25.0-35.0); MCHC 31.8 g/dL (31.0-37.0); MCV 89.3 fL (80.0-100.0); Mean Platelet Volume 7.7; Monocytes # (A) 0.8 k/uL (0-1.0); Monocytes % (A) 12 %; Neutrophils # (A) 3.9 k/uL (1.3-7.7); Neutrophils % (A) 58 %; Platelet Count 296 k/uL (150-450); RBC 5.32 m/uL (4.30-5.90); RDW 13.5 % (11.5-15.5); WBC 6.7 k/uL (3.8-10.6)
[2022-02-13 16:06] VITALS: RESP 18
--- NOTE | 2022-02-13 16:30 | CT ---
EXAMINATION TYPE: CT brain wo con CT DLP: 1159.4 mGycm, Automated exposure control for dose reduction was used. DATE OF EXAM: 02/13/2022 4:18 PM COMPARISON: Prior CT Brain from 02/05/2016 MRI brain 04/23/2016 CLINICAL INDICATION:Male, 76 years old with history of Visual changes, TECHNIQUE: Brain: Multiple axial CT images of the brain were obtained without IV contrast. FINDINGS: Brain: Extra-axial spaces: No abnormal extra-axial fluid collections. Ventricular system: Within normal limits Cerebral parenchyma: Bilateral remote lacunar injuries of the basal ganglia. No acute intraparenchyma l hemorrhage or mass effect. The kebede-white junction is well differentiated. Scattered hypoattenuati ng areas are seen within the white matter. Cerebellum: Unremarkable. Mass effect: No evidence of midline shift. Intracranial vasculature: Atherosclerotic calcifications of the intracranial vessels. Soft tissues: Normal. Calvarium/osseous structures: No depressed skull fracture. Paranasal sinuses and mastoid air cells: Mild scattered paranasal sinus disease. Visualized orbits: Orbital contents are intact. IMPRESSION: 1. No acute intracranial process. 2. Remote lacunar injuries along with nonspecific white matter changes likely secondary to chronic mi croangiopathy.
--- NOTE | 2022-02-13 18:00 | ED ---
Eye Problem HPI - General Chief complaint: Eye Problems Stated complaint: Blurred vision Time Seen by Provider: 02/13/22 14:50 Source: patient Mode of arrival: ambulatory Limitations: no limitations - History of Present Illness Initial comments: Patient is a 76-year-old male presenting with chief complaint of blurry and double vision that started around 10 AM today. Past medical history of CVA, COPD, hypertension, hyperlipidemia. Today he took an gsor-uop-srksdul decongestant containing pseudoephedrine. Patient states that the vision changes are mainly in the right eye. He denies any headache, nausea, vomiting, chest pain, shortness of breath, abdominal pain, fever, chills, pain with eye movement, loss of vision, eye pain. - Related Data Home Medications Medication Instructions Recorded Confirmed Aspirin 81 mg PO DAILY 06/01/15 05/20/20 Ipratropium/Albuterol Sulfate 2 puff INHALATION QID PRN 06/01/15 05/20/20 [Combivent Respimat Inhaler] Levothyroxine Sodium [Synthroid] 100 mcg PO DAILY 06/01/15 05/20/20 Tamsulosin HCl [Flomax] 0.4 mg PO HS 06/01/15 05/20/20 Tiotropium 18 Mcg/Puff [Spiriva] 1 cap INHALATION HS 06/01/15 05/20/20 lisinopriL [Zestril] 10 mg PO BID 06/01/15 05/20/20 Pravastatin Sodium [Pravachol] 80 mg PO HS 05/04/16 05/20/20 amLODIPine [Norvasc] 5 mg PO DAILY 04/15/20 05/20/20 Previous Rx's Medication Instructions Recorded Clopidogrel [Plavix] 75 mg PO DAILY #90 tab 05/21/20 Allergies Allergy/AdvReac Type Severity Reaction Status Date / Time atorvastatin calcium Allergy Nausea Verified 02/13/22 14:31 [From Lipitor] levofloxacin [From Levaquin] Allergy Unknown Verified 02/13/22 14:31 hydromorphone HCl AdvReac Nausea Verified 02/13/22 14:31 [From Dilaudid] Review of Systems ROS Statement: Those systems with pertinent positive or pertinent negative responses have been documented in the HPI. ROS Other: All systems not noted in ROS Statement are negative. Past Medical History Past Medical History: Cancer, COPD, CVA/TIA, GERD/Reflux, Hyperlipidemia, Hypert ension, Myocardial Infarction ([place]), Prostate Disorder, Thyroid Disorder Additional Past Medical History / Comment(s): hx thyroid cancer, rt leg feels heavy after CVA-cane,. aortic aneurysm Last Myocardial Infarction Date:: 06-25-2010 History of Any Multi-Drug Resistant Organisms: None Reported Past Surgical History: Bowel Resection, Coronary Bypass/CABG, Heart Catheterization With Stent, Hernia Repair Additional Past Surgical History / Comment(s): Mitral Valve Repair, CABG ,HEART CATH WITH STENT, thyroidectomy, right carotid endarterectomy, OBDULIA CATARACTS removed, vericose vein stripping left leg Past Anesthesia/Blood Transfusion Reactions: Postoperative Nausea & Vomiting (PONV) Date of Last Stent Placement:: 04/25/2013 Past Psychological History: No Psychological Hx Reported Smoking Status: Current every day smoker Past Alcohol Use History: None Reported Past Drug Use History: None Reported - Past Family History Sister(s) Family Medical History: Cancer Additional Family Medical History / Comment(s): aneurysm-brain Father Additional Family Medical History / Comment(s): aneurysm-brain General Exam Limitations: no limitations General appearance: alert, in no apparent distress Head exam: Present: atraumatic, normocephalic, normal inspection Eye exam: Present: normal appearance, PERRL, EOMI. Absent: scleral icterus, conjunctival injection Expanded Eyelids: Normal Inspection: Bilateral Visual acuity (R) = 20/: 40 Visual acuity (L) = 20/: 30 IOP (R) in mmH IOP (L) in mmH IOP measured with: [place] Neck exam: Present: normal inspection Respiratory exam: Present: normal lung sounds bilaterally. Absent: respiratory distress, wheezes, rales, rhonchi, stridor Cardiovascular Exam: Present: regular rate, normal rhythm, normal heart sounds. Absent: systolic murmur, diastolic murmur, rubs, gallop, clicks Neurological exam: Present: alert, oriented X3, CN II-XII intact Expanded Patient oriented to: Present: person, place, time Speech: Present: fluid speech Cranial nerves: EOM's Intact: Normal, Tongue Deviation: Normal, Nystagmus: N ormal, Facial Sensation: Normal Motor strength exam: RUE: 5, LUE: 5, RLE: 5, LLE: 5 Eye Response: (4) open spontaneously Motor Response: (6) obeys commands Verbal Response: (5) oriented Cheo Total: 15 Psychiatric exam: Present: normal affect, normal mood Skin exam: Present: warm, dry, intact, normal color. Absent: rash Course Vital Signs 02/13/22 02/13/22 02/13/22 14:28 16:05 16:23 Temperature 97.9 F Pulse Rate 76 80 96 Respiratory 16 18 18 Rate Blood Pressure 203/111 144/98 178/102 O2 Sat by Pulse 97 98 Oximetry 02/13/22 02/13/22 02/13/22 17:25 18:43 18:51 Temperature Pulse Rate 80 Respiratory 18 Rate Blood Pressure 144/94 168/100 136/98 O2 Sat by Pulse 98 Oximetry Medical Decision Making - Medical Decision Making Patient is a 76-year-old male presenting with chief complaint of playing vision and double vision. Symptoms started this morning at 10 AM. Of note patient has a history of hypertension, he took an zdrb-bne-srwqciv decongestant today. On examination patient is hypertensive, BP of 203/11. Patient has no focal neurological deficits. Denies chest pain, shortness of breath, palpitations, back or abdominal pain. Vision is 20/40 in the right eye and 20/30 in the left eye. IOP is 16 on the right side and 17 on the left side. Lab work is grossly negative. CT of the brain without contrast shows no acute intracranial process. Patient was given 2 doses of hydralazine 10 mg. On reassessment patient states that his vision is somewhat improved, but not completely back to normal. BP is 136/98 and heart rate is 80. Patient appears stable for discharge with close outpatient follow-up at this time. Follow-up with your PCP and ophthalmology in one to 2 days. Report back to ER if any worsening symptoms. Discontinue the use of jroz-rkv-ytxvomn decongestants. I discussed return parameters alarm symptoms. Answered all questions. Patient conveyed verbal understanding and agreed to the plan. I discussed this case with my attending Dr. Cook. - Lab Data Result diagrams: 02/13/22 15:07 02/13/22 15:07 Lab Results 02/13/22 02/13/22 02/13/22 Range/Units 15:07 15:07 15:07 WBC 6.7 (3.8-10.6) k/uL RBC 5.32 (4.30-5.90) m/uL Hgb 15.1 (13.0-17.5) gm/dL Hct 47.5 (39.0-53.0) % MCV 89.3 (80.0-100.0) fL MCH 28.4 (25.0-35.0) pg MCHC 31.8 (31.0-37.0) g/dL RDW 13.5 (11.5-15.5) % Plt Count 296 (150-450) k/uL MPV 7.7 Neutrophils % 58 % Lymphocytes % 23 % Monocytes % 12 % Eosinophils % 3 % Basophils % 1 % Neutrophils # 3.9 (1.3-7.7) k/uL Lymphocytes # 1.5 (1.0-4.8) k/uL Monocytes # 0.8 (0-1.0) k/uL Eosinophils # 0.2 (0-0.7) k/uL Basophils # 0.1 (0-0.2) k/uL PT 20.9 H (9.0-12.0) sec INR 2.1 H (<1.2) APTT 37.9 H (22.0-30.0) sec Sodium 136 L (137-145) mmol/L Potassium 4.1 (3.5-5.1) mmol/L Chloride 105 (98-107) mmol/L Carbon Dioxide 24 (22-30) mmol/L Anion Gap 7 mmol/L BUN 20 (9-20) mg/dL Creatinine 0.94 (0.66-1.25) mg/dL Est GFR (CKD-EPI)AfAm >90 (>60 ml/min/1.73 sqM) Est GFR (CKD-EPI)NonAf 80 (>60 ml/min/1.73 sqM) Glucose 105 H (74-99) mg/dL Calcium 8.9 (8.4-10.2) mg/dL Magnesium 1.9 (1.6-2.3) mg/dL Total Bilirubin 0.5 (0.2-1.3) mg/dL AST 25 (17-59) U/L ALT 15 (4-49) U/L Alkaline Phosphatase 119 (38-126) U/L Troponin I (0.000-0.034) ng/mL Total Protein 7.0 (6.3-8.2) g/dL Albumin 4.1 (3.5-5.0) g/dL 02/13/22 Range/Units 15:07 WBC (3.8-10.6) k/uL RBC (4.30-5.90) m/uL Hgb (13.0-17.5) gm/dL Hct (39.0-53.0) % MCV (80.0-100.0) fL MCH (25.0-35.0) pg MCHC (31.0-37.0) g/dL RDW (11.5-15.5) % Plt Count (150-450) k/uL MPV Neutrophils % % Lymphocytes % % Monocytes % % Eosinophils % % Basophils % % Neutrophils # (1.3-7.7) k/uL Lymphocytes # (1.0-4.8) k/uL Monocytes # (0-1.0) k/uL Eosinophils # (0-0.7) k/uL Basophils # (0-0.2) k/uL PT (9.0-12.0) sec INR (<1.2) APTT (22.0-30.0) sec Sodium (137-145) mmol/L Potassium (3.5-5.1) mmol/L Chloride (98-107) mmol/L Carbon Dioxide (22-30) mmol/L Anion Gap mmol/L BUN (9-20) mg/dL Creatinine (0.66-1.25) mg/dL Est GFR (CKD-EPI)AfAm (>60 ml/min/1.73 sqM) Est GFR (CKD-EPI)NonAf (>60 ml/min/1.73 sqM) Glucose (74-99) mg/dL Calcium (8.4-10.2) mg/dL Magnesium (1.6-2.3) mg/dL Total Bilirubin (0.2-1.3) mg/dL AST (17-59) U/L ALT (4-49) U/L Alkaline Phosphatase (38-126) U/L Troponin I <0.012 (0.000-0.034) ng/mL Total Protein (6.3-8.2) g/dL Albumin (3.5-5.0) g/dL Disposition Clinical Impression: Double vision, Blurred vision Disposition: HOME SELF-CARE Condition: Good Instructions (If sedation given, give patient instructions): Blurred Vision (ED) Additional Instructions: Follow-up with ophthalmology in one to 2 days. Discontinue use of at-home de congestants. Follow-up with your PCP in one to 2 days. Report back to ER if any worsening symptoms. Is patient prescribed a controlled substance at d/c from ED?: No Referrals: Sonny Leslie MD [Primary Care Provider] - 1-2 days Karthikeyan Lacy MD [STAFF PHYSICIAN] - 1-2 days Time of Disposition: 17:59
[2022-02-13 18:52] VITALS: BP 136/98; PULSE 80
== END 2022-02-13 19:01 | disposition home or self-care (01) ==
LOC: EC 14:23
DX: H53.8 Other visual disturbances (principal); H53.2 Diplopia; J44.9 Chronic obstructive pulmonary disease, unspecified; I10 Essential (primary) hypertension; I25.2 Old myocardial infarction; E78.5 Hyperlipidemia, unspecified; E07.9 Disorder of thyroid, unspecified; Z86.73 Personal history of transient ischemic attack (TIA), and cerebral infarction without residual deficits; Z79.899 Other long term (current) drug therapy; F17.200 Nicotine dependence, unspecified, uncomplicated; Z88.8 Allergy status to other drugs, medicaments and biological substances; Z88.1 Allergy status to other antibiotic agents; Z88.5 Allergy status to narcotic agent; Z79.82 Long term (current) use of aspirin; Z79.890 Hormone replacement therapy
CPT/HCPCS: 36415; 93005; 80053; 83735; 84484; 85025; 85610; 85730; 70450; 99284; 96374; J0360